=== PATIENT | female | born 1955 | race Caucasian/White ===

== ENCOUNTER 2016-05-09 09:19 | Emergency (ER) | payer OTHER ==
[~2016-05-09] VITALS: Ht 160 cm; Wt 75.0 kg
[~2016-05-09 09:19] MED LIST: ACET-514 PO; ASPI81TA3 PO; ATOR20TA38 PO; CLOP75TA27 PO; IBUP-1542 PO; LEVO750T25 PO; LISI-524 PO; METO-448 PO; NIT4 SL; PROM5SYR2 PO
[2016-05-09 09:37] VITALS: Ht 160 cm; Wt 75.0 kg
[2016-05-09] MEDS ORDERED: ATOR40TA68 PO (11:11)
--- NOTE | 2016-05-09 11:19 | RADRPT ---
PROCEDURE: XR Chest. CLINICAL INDICATION: Abdominal pain TECHNIQUE: Single frontal chest x-ray. COMPARISON: 09/16/2015 FINDINGS: The lungs are adequately expanded with minimal bibasilar atelectasis. There is no focal consolidati on, pleural effusion, or pneumothorax. The heart and mediastinal contours are unremarkable. Bones a re unremarkable. There are no acute fractures. RPTAT: QQ IMPRESSION: 1. No acute cardiopulmonary abnormality. Minimal bibasilar atelectasis. .Leticia Hunt MD, MD Date Time Electronically viewed and signed by .Leticia Hunt MD, MD on 05/09/2016 11:19 .T/
[2016-05-09 11:29] LABS: BASOPHILS % 0.3 % (0.0-2.0); EOSINOPHILS # 0.3 10^3/ul (0.0-0.5); EOSINOPHILS % 3.6 % (0.0-7.0); HEMOGLOBIN 14.6 g/dl (12.0-16.0); LYMPHOCYTES # 1.4 10^3/ul (0.8-2.9); LYMPHOCYTES % 19.9 % (15.0-51.0); MEAN CORPUSCULAR HGB CONC 33.3 g/dl (32.0-37.0); MEAN CORPUSCULAR VOLUME 87.1 fl (82.0-101.0); MONOCYTE # 0.5 10^3/ul (0.3-0.9); MONOCYTES % 6.7 % (0.0-11.0); NEUTROPHIL # 4.8 10^3/ul (1.6-7.5); NEUTROPHILS % 69.5 % (39.0-77.0); PLATELET COUNT 203 10^3/UL (140-440); RED BLOOD COUNT 5.05 10^6/ul (4.20-5.40); RED CELL DISTRIBUTION WIDTH 15.3 % (11.5-14.5); UNCORRECTED WBC 6.9 10^3/ul (4.8-10.8); WHITE BLOOD COUNT 6.9 10^3/ul (4.8-10.8)
[2016-05-09 11:34] LABS: CONDITION 1; LH ANALYZER COMMENTS 1
[2016-05-09 11:36] LABS: ADD UMIC YES; URINE BILIRUBIN (Dip) NEGATIVE (NEGATIVE); URINE BLOOD (Dip) 2+ (NEGATIVE); URINE COLOR LT. YELLOW (YELLOW); URINE GLUCOSE (Dip) NEGATIVE (NEGATIVE); URINE KETONES (Dip) NEGATIVE (NEGATIVE); URINE LEUKOCYTE ESTERASE (Dip) 1+ (NEGATIVE); URINE NITRITE (Dip) NEGATIVE (NEGATIVE); URINE TOTAL PROTEIN (Dip) NEGATIVE (NEGATIVE); URINE UROBILINOGEN (Dip) 0.2 E.U./dL (0.1-1.0)
[2016-05-09 11:39] LABS: ALBUMIN 4.5 g/dl (3.3-4.9)
[2016-05-09 11:40] LABS: CHLORIDE 101 mmol/L (97-110); POTASSIUM 4.5 mmol/L (3.5-5.1); SODIUM 143 mmol/L (135-144)
[2016-05-09 11:42] LABS: ANION GAP 20 (8-16); ASPARTATE AMINO TRANSFERASE 23 IU/L (15-46); BILIRUBIN,INDIRECT 0.5 mg/dl (0-1.1); BILIRUBIN,TOTAL 0.5 mg/dl (0.2-1.3); CARBON DIOXIDE 27 mmol/L (21-31); CREATININE 0.65 mg/dl (0.44-1.00)
[2016-05-09 11:43] LABS: ALANINE AMINOTRANSFERASE 28 IU/L (13-69); ALBUMIN/GLOBULIN RATIO 1.25; ALKALINE PHOSPHATASE 79 IU/L (42-121); BLOOD UREA NITROGEN 15 mg/dl (7-20); CALCIUM 9.6 mg/dl (8.4-10.2); GLUCOSE 98 mg/dl (70-220); INR 0.95; PARTIAL THROMBOPLASTIN TIME 30.9 Sec (25.0-35.0); PROTIME 12.7 Sec (12.2-14.2); TOTAL PROTEIN 8.1 g/dl (6.1-8.1)
[2016-05-09] MEDS ORDERED: SOD CHLORIDE 0.9% 100 ML ONE (11:50)
[2016-05-09] MEDS ORDERED: IODIXANOL LOCM 100 ML BTL ONE (11:50)
[2016-05-09 11:53] LABS: BACTERIA,URINE FEW; TRICHOMONAS,URINE FEW; URINE RBCS 0-2 /HPF (0)
[2016-05-09 11:59] LABS: TROPONIN-I < 0.012 ng/ml (0.00-0.12)
--- NOTE | 2016-05-09 12:04 | RADRPT ---
PROCEDURE: CT of the abdomen and pelvis CLINICAL INDICATION: Abdominal pain TECHNIQUE: The study was performed utilizing a GE Tractionpeed 64-slice multidetector CT scanner. Dir ect spiral axial sections were obtained through the abdomen and pelvis with intravenous contrast. Af ter administration of 90 cc of Visipaque 320, postcontrast images were obtained. Coronal and sagitt al reformatted images were performed. The CTDI vol is 15.97 mGy and the DLP is 901.42 mGy-cm. The i mages were reviewed on a PACS workstation. COMPARISON: No prior studies are available for comparison. FINDINGS: CT abdomen: The lung bases are clear. The heart is not enlarged. No pleural or pericardial effusi on is seen. The liver is normal in size and contour. Mild fatty infiltration of the liver is seen. Focal hepati c steatosis is seen adjacent to the falciform ligament. No focal liver lesions or intrahepatic bilia ry dilatation is seen. The gallbladder is normal. No biliary dilatation is seen. The spleen, pancre as, and adrenal glands are unremarkable in appearance. The kidneys are normal size and contour enhan ce normally. A simple cyst is seen in the mid right kidney measuring 2.3 cm in size. No evidence of hydronephrosis or nephrolithiasis is seen. The stomach is unremarkable. The large bowel is stool-filled. The small and large bowel are otherw ise unremarkable in course and caliber. A normal appendix is identified. No enlarged lymph nodes o r fluid collections are seen. The aorta is normal in caliber . CT pelvis: No pelvic mass, adenopathy, or focal fluid collection is seen. There is no free fluid. The urinary bladder is normal. The pelvic organs are unremarkable. No osseous lesions are seen. De generative spondylosis of the lower thoracic and lumbar spine is seen. A limbus vertebrae is seen i n the anterior superior endplate of L4. IMPRESSION: 1. No acute pathology in the abdomen and pelvis. 2. Stool filled large bowel. 3. Mild fatty infiltration of the liver. RPTAT: HPNM Physician Sarah Date Time Electronically viewed and signed by Physician Sarah on 05/09/2016 12:04 /
[2016-05-09] MEDS ORDERED: CEPH-442 PO (12:46)
[2016-05-09] MEDS ORDERED: NAPR-685 PO (12:46)
[2016-05-09] MEDS ORDERED: DOCU-144 PO (12:46)
--- NOTE | 2016-05-09 12:50 | ERD ---
ER Documentation Chief Complaint Date/Time DATE: 05/09/16 TIME: 12:47 Chief Complaint LOWER ABDOMINAL PAIN RADIATES TO LOWER BACK HPI 60-year-old female presents to the emergency department complaining of lower abdominal pain. Patient is non-[place] speaking. Translation is being performed by the son. Over the last 2 weeks or so, patient has had a nonspecific, visceral, poorly localized lower abdominal pain. Radiates towards her legs from her lower abdomen. It is associated with no fevers chills or urinary symptoms. Patient reports no nausea or vomiting. Patient has had no difficulty ambulating. There is no positional changes that occur with the pain and no other specific symptoms that are occurring with the pain. Currently the pain is described as a 7/10. ROS All systems reviewed and are negative except as per history of present illness. Medications Home Meds Active Scripts Cephalexin* (Keflex*) 250 Mg Capsule, 250 MG PO Q8 for 7 Days, #21 CAP Prov:KEMAL HARKINS 05/09/16 Naproxen* (Naproxen*) 375 Mg Tablet, 375 MG PO BID Y for PAIN, #20 TAB Prov:KEMAL HARKINS 05/09/16 Docusate Sodium* (Colace*) 100 Mg Capsule, 100 MG PO BID, #60 CAP Prov:KEMAL HARKINS 05/09/16 Nitroglycerin* (Nitrostat*) 25 Tab Subl, 1 TAB SL Q5M Y for CHEST PAIN, #50 TAB Prov:NAKIA MOORE MD 07/16/14 Metoprolol Tartrate* (Lopressor*) 25 Mg Tab, 25 MG PO BID for 60 Days, TAB 3 Refills Prov:NAKIA MOORE MD 07/16/14 Lisinopril* (Zestril*) 10 Mg Tab, 2.5 MG PO DAILY, #30 TAB 3 Refills Prov:NAKIA MOORE MD 07/16/14 Clopidogrel Bisulfate (Clopidogrel) 75 Mg Tab, 75 MG PO DAILY, #30 TAB 3 Refills Prov:NAKIA MOORE MD 07/16/14 Aspirin (Aspirin) 81 Mg Chew, 81 MG PO DAILY, #100 TAB Prov:NAKIA MOORE MD 07/16/14 Reported Medications Atorvastatin* (Atorvastatin*) 40 Mg Tablet, 40 MG PO QHS, #30 TAB 05/09/16 Discontinued Scripts Ibuprofen* (Ibuprofen*) 600 Mg Tablet, 600 MG PO Q8 Y for FEVER, #14 TAB Prov:JOHN HARDY DO 02/25/16 Promethazine HCl/Codeine (Prometh-Codein 6.25-10 mg/5 ml) 5 Ml Syrup, 5 ML PO Q8 , #120 Prov:JOHN HARDY DO 02/25/16 Acetaminophen (Acetaminophen) 325 Mg Tablet, 650 MG PO Q6 Y for FEVER, #30 TAB Prov:JOHN HARDY DO 02/25/16 Levofloxacin* (Levaquin*) 750 Mg Tablet, 750 MG PO DAILY, #5 TAB Prov:JOHN HARDY DO 02/25/16 Atorvastatin Calcium* (Atorvastatin Calcium*) 20 Mg Tab, 40 MG PO DAILY@21, #30 TAB 2 Refills Prov:NAKIA MOORE MD 07/16/14 Allergies Allergies: Coded Allergies: No Known Allergy (Unverified , 05/09/16) PMhx/Soc History of Surgery: Yes (stent) Anesthesia Reaction: No Hx Neurological Disorder: No Hx Respiratory Disorders: No Hx Cardiac Disorders: Yes (HTN , Hyperlipid) Hx Psychiatric Problems: No Hx Miscellaneous Medical Probl: Yes (Reflux) Hx Alcohol Use: No Hx Substance Use: No Hx Tobacco Use: No Smoking Status: Unknown if ever smoked FmHx Supportive son at the bedside. Physical Exam Vitals Vital Signs Date Time Temp Pulse Resp B/P Pulse Ox O2 Delivery O2 Flow Rate FiO2 05/09/16 09:37 97.8 68 18 140/70 98 Physical Exam GENERAL: The patient is well developed and appropriate for usual state of health in no apparent distress HEENT: Pupils equal, round, and reactive to light. EOMI. There is no scleral icterus. NECK: C-spine is soft and supple, there is no meningismus. There is no cervical lymphadenopathy. LUNGS: Clear to auscultation bilaterally. There are no rales, wheezes or rhonchi. HEART: Regular rate and rhythm, no murmurs, clicks, rubs or gallops. ABDOMEN: Soft, non-tender, non-distended. There are bowel sounds in all four quadrants. No rebound or guarding. EXTREMITIES: There is no peripheral cyanosis or edema. No focal swelling or erythema. NEURO: The patient moves all four extremities with 5/5 strength. Cranial nerves II - XII are intact. Normal gait. Alert and oriented SKIN: There is no apparent rash or petechiae. HEME/LYMPHATIC: There is no evidence of excessive bruising or lymphedema. PSYCHIATRIC: The patient does not appear anxious or depressed. Pulses: Strong and equal bilaterally in both lower extremities Result Diagram: 05/09/16 1110 05/09/16 1110 Results 24 hrs Laboratory Tests Test 05/09/16 11:00 05/09/16 11:10 Urine Bacteria FEW Urine Bilirubin NEGATIVE Urine Clarity CLEAR Urine Color LT. YELLOW Urine Epithelial Cells FEW Urine Glucose NEGATIVE% Urine Hemoglobin 2+ Urine Ketones NEGATIVE Urine Leukocyte Esterase 1+ Urine Microscopic RBC 0-2/HPF Urine Microscopic WBC 2-5/HPF Urine Nitrite NEGATIVE Urine Specific [place] >=1.030 Urine Total Protein NEGATIVE Urine Trichomonas FEW Urine Urobilinogen 0.2 E.U./dL Urine pH 5.5 Activated Partial Thromboplast Time 30.9Sec Alanine Aminotransferase (ALT/SGPT) 28IU/L Albumin 4.5g/dl Albumin/Globulin Ratio 1.25 Alkaline Phosphatase 79IU/L Anion Gap 20 Aspartate Amino Transf (AST/SGOT) 23IU/L Basophils # 0.010^3/ul Basophils % 0.3% Blood Morphology Comment Blood Urea Nitrogen 15mg/dl Calcium Level 9.6mg/dl Carbon Dioxide Level 27mmol/L Chloride Level 101mmol/L Creatinine 0.65mg/dl Direct Bilirubin 0.00mg/dl Eosinophils # 0.310^3/ul Eosinophils % 3.6% Globulin 3.60g/dl Glucose Level 98mg/dl Hematocrit 44.0% Hemoglobin 14.6g/dl INR International Normalized Ratio 0.95 Indirect Bilirubin 0.5mg/dl Lipase 86U/L Lymphocytes # 1.410^3/ul Lymphocytes % 19.9% Mean Corpuscular Hemoglobin 29.0pg Mean Corpuscular Hemoglobin Concent 33.3g/dl Mean Corpuscular Volume 87.1fl Mean Platelet Volume 10.0fl Monocytes # 0.510^3/ul Monocytes % 6.7% Neutrophils # 4.810^3/ul Neutrophils % 69.5% Nucleated Red Blood Cells # 0.010^3/ul Nucleated Red Blood Cells % 0.0/100WBC Platelet Count 73012^3/UL Potassium Level 4.5mmol/L Prothrombin Time 12.7Sec Prothrombin Time Ratio 1.0 Red Blood Count 5.0510^6/ul Red Cell Distribution Width 15.3% Sodium Level 143mmol/L Total Bilirubin 0.5mg/dl Total Protein 8.1g/dl Troponin I < 0.012ng/ml White Blood Count 6.910^3/ul Current Medications Medications (Trade) Dose Ordered Sig/Clarice Route PRN Reason Start Time Stop Time Status Last Admin Dose Admin Iodixanol 100 ml 100 ml STK-MED ONCE .ROUTE 05/09/16 11:50 05/09/16 11:51 DC 05/09/16 12:36 Sodium Chloride (NS) 100 ml @ ud STK-MED ONCE .ROUTE 05/09/16 11:50 05/09/16 11:51 DC 05/09/16 12:36 Procedures/MDM Patient was taken to a room, seen and evaluated. Comfort measures were initiated. Diagnostic tests were ordered and reviewed. 3 LEAD RHYTHM STRIP: Normal sinus rhythm without ectopy 12 lead EKG interpreted by myself: Rate/rhythm: Normal sinus rhythm [place]/intervals: Normal Ischemia: Nonspecific ST and T-wave changes with no ST elevation Impression: Nonspecific EKG RADIOLOGY: reviewed with the radiologist REEVALUATION: Serial examinations of the patient remained benign MEDICAL DECISION MAKIN-year-old female with a history of underlying heart disease presents with lower abdominal pain of uncertain etiology. Differential diagnosis entertained was broad and potential high acuity. At this time, patient's diagnostic workup is still nondiagnostic of a severe because of pain. Her urine test demonstrates evidence of a questionable mild urinary tract infection. Her CT scan demonstrates no signs of other significant intra- abdominal or pelvic inflammatory changes or vascular changes. Patient at this point appears to be constipated with no signs of other significant obstruction. Overall, patient is clinically well-appearing and appropriate for outpatient care. Departure Diagnosis: Primary Impression: Pelvic pain Condition: Stable Patient Instructions: Pelvic Pain, Unknown Cause Additional Instructions: Please see your doctor this week for a recheck. Return for any problems or concerns. KEMAL HARKINS May 09, 2016 12:50
[2016-05-09 13:00] VITALS: BP 142/69; PULSE 65; RESP 20; TEMP 98.2
== END 2016-05-09 16:15 | disposition home or self-care (01) ==
LOC: E/R 09:19
DX: R10.2 Pelvic and perineal pain (principal); I10 Essential (primary) hypertension; Z79.82 Long term (current) use of aspirin; Z95.5 Presence of coronary angioplasty implant and graft
CPT/HCPCS: 36415; 71010; 74177; 80053; 81001; 83690; 84484; 85025; 85610; 85730; 93005; Q9967; Z7502; Z7610; 81003

== ENCOUNTER 2018-03-21 23:46 | Emergency (ER) | END 2018-03-22 04:19 | disposition home or self-care (01) ==

== ENCOUNTER 2018-11-24 18:45 | Emergency (ER) | payer MEDICARE, OTHER ==
[~2018-11-24] VITALS: Ht 152.4 cm; Wt 70.4 kg
[~2018-11-24 18:45] MED LIST changes: -ACET-514 PO; +ASPI-831 PO; -ASPI81TA3 PO; -ATOR20TA38 PO; +ATOR40TA68 PO; +CEPH-442 PO; +DOCU-144 PO; +DOXY100T20 PO; +IBUP-1561 PO; -LEVO750T25 PO; +METH500T PO; +NAPR-685 PO; -NIT4 SL; +NITR0.4T39 SL; -PROM5SYR2 PO
[2018-11-24 19:07] VITALS: Ht 152.4 cm; Wt 70.4 kg
[2018-11-24] MEDS ORDERED: IBUPROFEN 200 MG TAB PO ONE (20:00)
[2018-11-24] MEDS ORDERED: METHOCARBAMOL 500 MG TAB PO ONE (20:00)
[2018-11-24 20:33] VITALS: BP 138/71; PULSE 64; RESP 16
== END 2018-11-24 20:33 | disposition home or self-care (01) ==
LOC: FTE 18:45
DX: M62.830 Muscle spasm of back (principal); I10 Essential (primary) hypertension; I25.2 Old myocardial infarction; Z79.01 Long term (current) use of anticoagulants; Z79.82 Long term (current) use of aspirin; Z98.61 Coronary angioplasty status
CPT/HCPCS: 81003; 85025; 99283